=== PATIENT | female | born 1960 | race Caucasian/White ===

== ENCOUNTER 2017-02-21 08:03 | Day surgery (SDC) | payer OTHER ==
[~2017-02-21] VITALS: Ht 162.6 cm; Wt 132.4 kg
[2017-02-21 08:59] VITALS: Ht 162.6 cm; Wt 132.4 kg
[2017-02-21] MEDS ORDERED: LIDOCAINE 2% (SDV) 5 ML INJ ONE (09:00)
[2017-02-21] MEDS ORDERED: PROPOFOL 40 ML ONE (09:00)
[2017-02-21] MEDS ORDERED: HYDR-3672 PO (09:17)
[2017-02-21] MEDS ORDERED: ASPI-664 PO (09:17)
[2017-02-21] MEDS ORDERED: GLIP5TAB13 PO (09:17)
[2017-02-21] MEDS ORDERED: MTF1000T PO (09:17)
[2017-02-21] MEDS ORDERED: LANT3I SC (09:17)
[2017-02-21] MEDS ORDERED: NIFE60TA9 PO (09:17)
[2017-02-21] MEDS ORDERED: METO100T13 PO (09:17)
[2017-02-21] MEDS ORDERED: LOSA100T7 PO (09:17)
[2017-02-21] MEDS ORDERED: LISI40TA9 PO (09:17)
[2017-02-21] MEDS ORDERED: ATOR40TA68 PO (09:17)
[2017-02-21 09:36] VITALS: BP 141/65; PULSE 98; RESP 22
[2017-02-21 10:23] VITALS: BP 147/84; RESP 20
--- NOTE | 2017-03-23 05:36 | GILP ---
DATE OF PROCEDURE: 03/10/2017 PREOPERATIVE DIAGNOSIS: Screening colonoscopy. POSTOPERATIVE DIAGNOSES: 1. Colonoscopy all the way to the cecum. 2. Poor prep making the exam somewhat suboptimal. 3. Internal hemorrhoids. 4. No gross neoplasm was identified. PROCEDURE PERFORMED: Colonoscopy. SURGEON: Maryana Jackson MD INDICATION FOR PROCEDURE: Ms. Callie Foley is a 55-year-old female patient who is scheduled for a screening colonoscopy. The procedure and possible complications were well explained to the patient. She understood and consented to the procedure. DESCRIPTION OF PROCEDURE: The colonoscope was carefully introduced in the rectum and under direct vision it was advanced all the way to the cecum. Findings, the patient had a poor prep making the exam somewhat suboptimal. The patient was noted to have internal hemorrhoids. No gross neoplasm was identified. She tolerated the procedure very well and there was no complications from the procedure. At the end of procedure she was awake with stable vital signs and she was discharged home in the care of her family. IMPRESSION: 1. Colonoscopy all the way to the cecum. 2. Poor prep making the exam somewhat suboptimal. 3. Internal hemorrhoids. 4. No gross neoplasm was identified. PLAN: Because of the poor prep and suboptimal nature of the examination would recommend repeat colonoscopy with better preparation in 1 year. Dictated By: MD AUDI Moscoso/humera/tiffany /Document#: [id number] CC: Maryana Jackson MD;*End*
== END 2017-02-21 11:08 | disposition home or self-care (01) ==
LOC: GIL 08:03
PROVIDERS: ATTEND Internal Medicine Gastroenterology
DX: Z12.11 Encounter for screening for malignant neoplasm of colon (principal); K64.8 Other hemorrhoids; E11.9 Type 2 diabetes mellitus without complications; I10 Essential (primary) hypertension; E78.5 Hyperlipidemia, unspecified; E66.01 Morbid (severe) obesity due to excess calories; Z68.43 Body mass index [BMI] 50.0-59.9, adult
CPT/HCPCS: 45378; 82962; Z7610